=== PATIENT | female | born 1960 | race Hispanic/Latino ===

== ENCOUNTER 2016-12-21 22:20 | Emergency (ER) | payer OTHER ==
[2016-12-21 22:33] VITALS: BP 142/88; PULSE 68; RESP 16; TEMP 97.7; O2SAT 100
[2016-12-21] MEDS ORDERED: cefTRIAXone (Rocephin) 1 gm Inj ONE (23:11)
[2016-12-21 23:26] LABS: BASO # 0.1 K/uL (0.0-0.2); BASO % 1.3 % (0.0-2.0); EOS # 0.1 K/uL (0.0-0.7); EOS % 1.9 % (0.0-4.0); LYMPH # 2.5 K/uL (1.0-4.3); LYMPH % 38.1 % (20.0-40.0); MEAN CELL VOLUME 87.8 fl (81.0-99.0); MEAN CORPUSCULAR HEMOGLOBIN 29.2 pg (27.0-31.0); MEAN CORPUSCULAR HGB CONC 33.2 g/dL (33.0-37.0); MEAN PLATELET VOLUME 7.7 fl (7.2-11.7); MONO # 0.6 K/uL (0.0-0.8); MONO % 9.2 % (0.0-10.0); NEUT # 3.2 K/uL (1.8-7.0); NEUT % 49.5 % (50.0-75.0); RED CELL DISTRIBUTION WIDTH 12.6 % (11.5-14.5); WHITE BLOOD COUNT 6.5 K/uL (4.8-10.8)
[2016-12-21 23:53] LABS: ALB/GLOB RATIO 1.6 (1.0-2.1); ALKALINE PHOSPHATASE 85 U/L (38-126); ALT/SGPT 43 U/L (9-52); AST/SGOT 25 U/L (14-36); BILIRUBIN,TOTAL 0.6 mg/dl (0.2-1.3); BLOOD UREA NITROGEN 13 mg/dl (7-17); CALCIUM 10.2 mg/dL (8.4-10.2); CARBON DIOXIDE 25 mmol/L (22-30); CHLORIDE 102 mmol/L (98-107); GFR AFRICAN-AMERICAN > 60; GLUCOSE,RANDOM 108 mg/dL (65-105); SODIUM 137 mmol/l (132-148); TOTAL PROTEIN 7.7 G/DL (6.3-8.2)
--- NOTE | 2016-12-21 23:57 | ED PDOC ---
HPI: Skin/Bite Injury Time Seen by Provider: 12/21/16 22:56 Chief Complaint (Nursing): Abnormal Skin Integrity Chief Complaint (Provider): lesion History Per: Patient History/Exam Limitations: no limitations Additional Complaint(s): 56yo F in ED for eval of tick bite and ? infection to mid back 2weeks-states she was seen at an ER 3d ago given one dose of doxycycline and Rx for keflex. PT states swelling, redness and pain has increased. denies fever chills nausea or vomiting. pt denies receiving lyme titer test Past Medical History Reviewed: Historical Data, Nursing Documentation, Vital Signs Vital Signs: Last Vital Signs Temp 97.7 F 12/21/16 22:28 Pulse 68 12/21/16 22:28 Resp 16 12/21/16 22:28 BP 142/88 12/21/16 22:28 Pulse Ox 100 12/21/16 22:28 - Medical History PMH: No Chronic Diseases - Family History Family History: States: No Known Family Hx - Home Medications Home Medications: Ambulatory Orders Medication Instructions Recorded Doxycycline Monohydrate [Mondoxyne 100 mg PO BID #24 capsule 12/22/16 ] - Allergies Allergies/Adverse Reactions: Allergies Allergy/AdvReac Type Severity Reaction Status Date / Time erythromycin base Allergy URTICARIA Verified 12/21/16 22:28 [From Erythrocin] Review of Systems ROS Statement: Except As Marked, All Systems Reviewed And Found Negative Constitutional: Negative for: Fever, Chills Skin: Positive for: Rash, Lesions Physical Exam - Reviewed Nursing Documentation Reviewed: Yes Vital Signs Reviewed: Yes - Physical Exam Appears: Positive for: Well, Non-toxic, No Acute Distress Head Exam: Positive for: ATRAUMATIC, NORMAL INSPECTION, NORMOCEPHALIC Skin: Positive for: Normal Color, Warm, DRY Eye Exam: Positive for: Normal appearance, EOMI, PERRL Cardiovascular/Chest: Positive for: Regular Rate, Rhythm Respiratory: Positive for: CNT, Normal Breath Sounds Extremity: Positive for: Other (upper back: ertyhema streaking warmth noted tenderness noted) Neurologic/Psych: Positive for: Alert, Oriented - Laboratory Results Result Diagrams: 12/21/16 23:23 12/21/16 23:23 - ECG O2 Sat by Pulse Oximetry: 100 - Progress ED Course And Treament: impression cellulites. given 1 dose of rocephin and cbc/cmp Medical Decision Making Medical Decision Making: lyme testing io pt will get Rx for doxycycline for d/c and advised f/u with pmd in 3days if with worsening symptoms to return to ER Disposition - Clinical Impression Clinical Impression: Cellulitis, Tick bite - Patient ED Disposition Is Patient to be Admitted: No Counseled Patient/Family Regarding: Studies Performed, Diagnosis, Rx Given - Disposition Referrals: [facility] [Outside] [facility] [Outside] Disposition: Routine/Home Disposition Time: 00:02 Condition: STABLE Prescriptions: Doxycycline Monohydrate [Mondoxyne Nl] 100 mg PO BID #24 capsule Instructions: Lyme Disease (ED), Tick Bite (ED), Cellulitis (ED) Forms: [facility] [facility] ([place]ian)
== END 2016-12-22 00:23 | disposition home or self-care (01) ==
LOC: H.ER 22:20 → MERGE 22:20 → H.ER 12-22 00:23
DX: L03.312 Cellulitis of back [any part except buttock and flank] (principal)